=== PATIENT | female | born 1995 | race Two or more races ===

== ENCOUNTER 2019-05-06 18:31 | Emergency (ER) | payer OTHER ==
[~2019-05-06] VITALS: Ht 152.4 cm; Wt 54.4 kg
[~2019-05-06 18:31] MED LIST: CEFTIN500 MG PO; CEFUROXIME250 MG PO; KETO10TA2 PO; LEVSIN/SL0.125 MG SL; ULTRAM50 MG
[2019-05-06] MEDS ORDERED: LUPRON DEPOT7.5 MG IM (18:50)
== END 2019-05-06 22:45 | disposition home or self-care (01) ==
LOC: ER 18:31
DX: E86.0 Dehydration (principal); R07.89 Other chest pain; T38.895A Adverse effect of other hormones and synthetic substitutes, initial encounter; Y92.89 Other specified places as the place of occurrence of the external cause

== ENCOUNTER 2021-03-28 14:11 | Inpatient (IN) | payer OTHER ==
[~2021-03-28] VITALS: Ht 165.1 cm; Wt 68.0 kg
[~2021-03-28 14:11] MED LIST changes: +LUPRON DEPOT7.5 MG IM
== END 2021-04-05 11:25 | disposition home or self-care (01) | DRG 786 ==
LOC: OBS/DEL 14:11 → LDR 03-29 11:24 → OB/GYN 03-29 11:24
PROVIDERS: ADMIT Obstetrics & Gynecology Obstetrics; ATTEND Obstetrics & Gynecology Obstetrics
PROC: 4A1HXFZ Monitoring of Products of Conception, Cardiac Rhythm, External Approach (ICD-10-PCS; 2021-03-29)
PROC: 10D00Z1 Extraction of Products of Conception, Low, Open Approach (ICD-10-PCS; principal; 2021-04-02 17:00)
DX: O62.0 Primary inadequate contractions (principal); O60.14X0 Preterm labor third trimester with preterm delivery third trimester, not applicable or unspecified; O23.43 Unspecified infection of urinary tract in pregnancy, third trimester; N39.0 Urinary tract infection, site not specified; O99.892 Other specified diseases and conditions complicating childbirth; B96.20 Unspecified Escherichia coli [E. coli] as the cause of diseases classified elsewhere; Z3A.35 35 weeks gestation of pregnancy; Z37.0 Single live birth

== ENCOUNTER 2025-02-15 07:47 | Emergency (ER) | payer OTHER ==
[~2025-02-15] VITALS: Ht 165.1 cm; Wt 59.0 kg
[2025-02-15] MEDS ORDERED: PRENATABS RX T1 EACH (07:55)
== END 2025-02-15 08:42 | disposition home or self-care (01) ==
LOC: ER 07:47
DX: R25.2 Cramp and spasm (principal)